=== PATIENT | female | born 1975 | race Caucasian/White ===

== ENCOUNTER 2016-08-27 05:28 | Day surgery (SDC) | payer BC ==
[~2016-08-27 05:28] MED LIST: ATIVAN0.5 M1 PO; IBUPROFEN200 M2 PO; MAXALT10 M1 PO; PAXIL20 M1 PO; TOPAMAX50 M3 PO; ULTRAM50 M1 PO
[2016-08-28] MEDS ORDERED: PERCOCET 5-3251 EACH PO (02:24)
== END 2016-08-28 08:00 ==
LOC: SHSC 05:28 → PACU 08:55 → OBGF 10:25
PROC: 0UT94ZZ Resection of Uterus, Percutaneous Endoscopic Approach (ICD-10-PCS; principal; 2016-08-27)
PROC: 0UTC4ZZ Resection of Cervix, Percutaneous Endoscopic Approach (ICD-10-PCS; 2016-08-27)
PROC: 0UT24ZZ Resection of Bilateral Ovaries, Percutaneous Endoscopic Approach (ICD-10-PCS; 2016-08-27)
PROC: 0UT74ZZ Resection of Bilateral Fallopian Tubes, Percutaneous Endoscopic Approach (ICD-10-PCS; 2016-08-27)
PROC: 8E0W4CZ Robotic Assisted Procedure of Trunk Region, Percutaneous Endoscopic Approach (ICD-10-PCS; 2016-08-27)
DX: N72 Inflammatory disease of cervix uteri (principal); N83.209 Unspecified ovarian cyst, unspecified side; N92.0 Excessive and frequent menstruation with regular cycle; F41.9 Anxiety disorder, unspecified; F17.210 Nicotine dependence, cigarettes, uncomplicated; Z88.1 Allergy status to other antibiotic agents; Z88.8 Allergy status to other drugs, medicaments and biological substances; Z90.49 Acquired absence of other specified parts of digestive tract; Z98.890 Other specified postprocedural states
CPT/HCPCS: J0690; J1170; J2175; J2250; J3010; J7030